=== PATIENT | male | born 1940 | race Caucasian/White ===

== ENCOUNTER → 2016-06-21 08:23 | Day surgery (SDC) | payer MEDICARE, BC ==
[~2016-06-21 08:23] MED LIST: Acetaminophen TAB* 325 MG PO PRN; Buffered Lidocaine 1% SYRIN* 3 ML/SYR SYRINGE INTRADERM ONE; Cyclopentolate 1% OPTH.SOL* 2 ML BTL ONE; Flurbiprofen 0.03% OPTH.SOL* 2.5 ML BTL ONE; Lidocaine 1% MPF* 2 ML VIAL ONE; Lidocaine 2% EPI 1:200000 MPF* 20 ML VIAL ONE; Midazolam* 1 MG/ML 5 ML VIAL (5 MG) ONE; Neomycin/Polymy/Dex OPTH.SUSP* MAXITROL 0.1% 5 ML ONE; Phenylephrine 2.5% OPTH.SOL* 2 ML BTL ONE; Povidone Iodine 5% OPTH* 30 ML BTL ONE; Proparacaine 0.5% OPHTH.SOL* 15 ML BTL ONE; acetaZOLAMIDE TAB* 250 MG ONE
[2016-06-21 11:38] VITALS: BP 134/79
--- NOTE | 2016-06-22 00:54 | OP ---
DATE OF OPERATION: 06/21/16 [facility] DATE OF : 42 SURGEON: Ethan Tello MD PREOPERATIVE DIAGNOSIS: Cataract, right eye. POSTOPERATIVE DIAGNOSIS: Cataract, right eye. OPERATIVE PROCEDURE: Phacoemulsification, right eye with IOL and iStent. DESCRIPTION OF PROCEDURE: The patient was brought to the operating room after being given 1/2% Alcaine with epinephrine drops in the preoperative area. The eye was prepped and draped in the usual sterile fashion. Sterile drape and eyelid speculum were placed. Again, topical 1/2% Alcaine with epinephrine was given. A paracentesis incision was made at the 9 o'clock position with the No.75 blade. Clear cornea incision 2.2 x 2.2-mm was created at the 12 o'clock position starting at the anterior limbus using the 2.2-mm keratome. The anterior chamber was irrigated with 0.4 mL of 1% non-preservative intracameral lidocaine and filled with DisCoVisc. A capsulorrhexis was completed using the cystotome and the Utrata forceps. Hydrodissection was performed with balanced salt solution. The lens nucleus was removed with the Phacoemulsification handpiece without incident. Cortex was removed with the irrigation-aspiration handpiece. The capsular bag was re-inflated using DisCoVisc and an [id number] implant was inserted with the shooter followed by the iStent [id number] inserted with its shooter at the 3 o'clock position into the trabecular meshwork. The irrigation-aspiration handpiece was used to remove all residual DisCoVisc. The eye was refilled with balanced salt solution and the wound checked and found to be watertight. Topical Maxitrol drops were given. [id number] #: [id number] MTDD
== END | disposition home or self-care (01) ==
LOC: OREAST 08:23
PROVIDERS: ATTEND Specialist
DX: H25.811 Combined forms of age-related cataract, right eye (principal); H40.1131 Primary open-angle glaucoma, bilateral, mild stage; E11.8 Type 2 diabetes mellitus with unspecified complications; Z79.84 Long term (current) use of oral hypoglycemic drugs; I25.10 Atherosclerotic heart disease of native coronary artery without angina pectoris; Z95.1 Presence of aortocoronary bypass graft
CPT/HCPCS: C1783; J2250; V2632

== ENCOUNTER 2018-11-21 05:30 | Inpatient (IN) | payer MEDICARE, BC ==
--- NOTE | 2018-11-17 19:52 | HP ---
PREOPERATIVE HISTORY AND PHYSICAL: DATE OF ADMISSION/SURGERY: 11/21/18 SURGEON: Yuly Scott MD * (DICTATED BY MERLE BERMUDEZ) PROCEDURE: Left total knee replacement. CHIEF COMPLAINT: Left knee pain. HISTORY OF PRESENT ILLNESS: Mr. Jean is a 77-year-old male with 2 years of increasingly painful knee pain that has become quite severe. He describes it as 9/10 and he has been trying to stay off of it most of the time to reduce his discomfort. The pain is sharp along the joint line and it is made worse if he tries to walk even half a block. He can no longer climb stairs or stand for a prolonged period of time. He has tried conservative measures without relief and is seeking surgical intervention. PAST MEDICAL HISTORY: 1. Hypertension. 2. Heart disease. 3. Type 2 diabetes. 4. Hypercholesterolemia. 5. Osteoarthritis. No DVT or pulmonary embolus. PAST SURGICAL HISTORY: 1. Retinal repair. 2. Angioplasty. 3. Hernia repair. 4. Lithotripsy for kidney stones. 5. Back surgery. 6. CABG, quadruple bypass in 2011. 7. Cholecystectomy. He denies anesthetic complications with these procedures. CURRENT MEDICATIONS: 1. Glyburide/metformin 2.5/500 mg 1 tab p.o. twice daily. 2. Nexium 40 mg 1 tab p.o. daily. 3. Hydrochlorothiazide 12.5 mg 1 tab p.o. daily. 4. Ramipril 10 mg 1 tab p.o. daily. 5. Avodart 0.5 mg 1 tab p.o. daily. 6. Nitrostat 0.4 mg 1 tab sublingual q.5 minutes up to 3 doses as needed for chest pain. 7. Aspirin 81 mg 1 tab p.o. daily. 8. Garlic 1000 mg 1 tab p.o. daily. 9. Multivitamin 1 capsule p.o. daily. 10. Klor-Con 20 mEq 1 tab p.o. daily. 11. Pravastatin sodium 80 mg 1 tab p.o. daily at bedtime. 12. Norvasc 10 mg 1 tab p.o. daily. 13. Fluticasone propionate 50 mcg/act 2 sprays each nostril daily as needed. 14. Metoprolol succinate ER 100 mg 1 tab p.o. twice daily. ALLERGIES: PENICILLIN causes GI upset, CHOCOLATE, LIPITOR, and CRESTOR. FAMILY HISTORY: Positive for cancer. No diabetes or heart disease. SOCIAL HISTORY: He lives with his spouse and is retired. He denies tobacco, alcohol, or recreational drug use. He is minimally active even pain. REVIEW OF SYSTEMS: A 14 systems were reviewed with the patient and are positive for left knee pain and swelling, seasonal allergies, and hay fever. Otherwise, all systems are negative. PHYSICAL EXAMINATION GENERAL: He is a well-developed, well-nourished male, seated on exam table, in no acute distress with appropriate affect. VITAL SIGNS: Height 59.5 inches, weight 202 pounds, pulse 72, blood pressure 140/82, respirations 16. HEENT: Normocephalic, atraumatic. Hearing and vision are grossly intact. Extraocular movements intact. NECK: The trachea is midline and symmetrical. LUNGS: Clear to auscultation. No wheezes, rales, or rhonchi appreciated. CARDIO: Regular rate and rhythm. Normal S1, S2. No murmurs, rubs, or gallops noted. ABDOMEN: Nondistended. Bowel sounds present. GENITOURINARY: Deferred. MUSCULOSKELETAL: Of the left lower extremity, the skin is pink, dry, and intact without abrasions or open wounds. There is a moderate effusion at the knee with tenderness along the medial and lateral joint line. There is a varus deformity. He extends the knee to 15 degrees, flexes to 110 with pain. No varus or valgus instability. 5/5 strength against resistance in 4 planes in the ankle with intact sensation. 2+ dorsalis pedis pulse. IMAGING: Multiple views of the left knee performed previously shows severe end - stage osteoarthritis with medial and patellofemoral [id number] arthritis. There is tricompartmental joint space narrowing, osteophyte formation and subchondral sclerosis. ASSESSMENT: Left knee severe end-stage osteoarthritis. PLAN: Left total knee replacement with Dr. Scott. The patient's questions were answered and he would like to proceed. Dr. Scott reviewed the risks and benefits of the surgery at today's visit. The patient will follow up postoperatively. MERLE BERMUDEZ [id number]/[facility] #: [id number] FIDENCIO
[~2018-11-21 05:30] MED LIST changes: -Acetaminophen TAB* 325 MG PO PRN; +Buffered Lidocaine 1% SYRIN* 1 ML/SYRINGE INTRADERM ONE; -Buffered Lidocaine 1% SYRIN* 3 ML/SYR SYRINGE INTRADERM ONE; -Cyclopentolate 1% OPTH.SOL* 2 ML BTL ONE; -Flurbiprofen 0.03% OPTH.SOL* 2.5 ML BTL ONE; -Lidocaine 1% MPF* 2 ML VIAL ONE; -Lidocaine 2% EPI 1:200000 MPF* 20 ML VIAL ONE; -Midazolam* 1 MG/ML 5 ML VIAL (5 MG) ONE; -Neomycin/Polymy/Dex OPTH.SUSP* MAXITROL 0.1% 5 ML ONE; -Phenylephrine 2.5% OPTH.SOL* 2 ML BTL ONE; -Povidone Iodine 5% OPTH* 30 ML BTL ONE; -Proparacaine 0.5% OPHTH.SOL* 15 ML BTL ONE; +Tranexamic Acid 1,000 MG in NS 0.9% 50 ML* (outpatient use) IV SCH; -acetaZOLAMIDE TAB* 250 MG ONE
--- OUTSIDE RECORDS SUMMARY | 2018-11-21 05:34 | XMS REPORT | Continuity of Care Document ---
:1940 External Reference #:[id number] Author Name Antonio Lizarraga M.D., [facility], [facility] (transmitted by agent of provider Beth Salvador) Address [address] [place] [id number] Care Team Providers Name Role Phone Ray Shipman MD - Family Medicine Care Team Information Projects Manager [phone] Problems Active Problems Provider Date Localized, primary osteoarthritis Yuly Scott M.D. Onset: 10/09/2018 Atherosclerotic heart disease of Antonio Lizarraga M.D., [facility], Onset: 2015 [place] coronary artery without angina [facility] pectoris Chronic ischemic heart disease Antonio Lizarraga M.D., [facility], Onset: 2014 [facility] Social History Type Date Description Comments Sex Unknown ETOH Use Denies alcohol use Tobacco Use Start: Unknown End: Patient is a former quit in Unknown smoker Recreational Drug Use Denies Drug Use Smoking Status Reviewed: 11/06/18 Patient is a former quit in smoker Exercise Type/Frequency Exercises regularly exercise bike 30 min a day, seasonal gardening,lawn care, cutting wood Allergies, Adverse Reactions, Alerts Active Allergies Reaction Severity Comments Date Penicillin UPSET STOMACH Moderate 12/27/2011 Chocolate SEVERE MIGRAINE, SNYCOPE Severe 12/27/2011 Lipitor UPSET STOMACH, SEVERE LEG PAIN Severe 12/27/2011 Crestor SEVERE LEG PAIN Moderate 12/27/2011 Medications Active Medications SIG Qnty Indications Ordering Date Provider Glyburide-Metformin 1 po bid 180tabs Unknown 2.5-500mg Tablets Nexium 1 by mouth 30units Unknown 40mg Packet every day Hydrochlorothiazide 1 by mouth 90caps Unknown 12.5mg every day Capsules Ramipril 1 by mouth 90caps Unknown 10mg Capsules every day Avodart 1 by mouth 90caps Unknown 0.5mg Capsules every day Nitrostat one sl q5min 25tabs Unknown 0.4mg Tablets Sub up to 3 doses as needed Aspirin 1 by mouth Unknown 81mg Tablets every day Garlic 1 by mouth Unknown 1000mg Capsules every day Multivitamins 1 capsule 30caps Unknown Capsules daily Klor-Con daily Unknown 20Meq Pravastatin Sodium 1 tablet once Unknown 80mg Tablets daily at bedtime Norvasc 1 by mouth Unknown 10mg Tablets every day Fluticasone Propionate 2 sprays each Unknown 50mcg/Act nostril daily Suspension as needed Metoprolol Succinate ER 1 by mouth Ray Shipman, 100mg twice per day MD Tablets ER 24HR Medications Administered in Office Medication SIG Qnty Indications Ordering Provider Date Inj, Regadenoson, 0.1 MG Antonio Lizarraga M.D., 11/19/2017 Injection FACC, [facility] Technetium TC 99M Antonio Lizarraga M.D., 11/19/2017 Tetrofosmin, Per Unit Dose FACC, [facility] Up To 40 Millicuries Injection Inj, Regadenoson, 0.1 MG Antonio Lizarraga M.D., 12/18/2011 Injection FACC, [facility] Technetium TC 99M Antonio Lizarraga M.D., 12/18/2011 Tetrofosmin, Per Unit Dose FACC, [facility] Up To 40 Millicuries Injection Immunizations Description No Information Available Vital Signs Date Vital Result Comment 11/06/2018 11:11am Height 69.50 inches 5'9.50" Weight 202.00 lb with shoes Heart Rate 80 /min BP Systolic Sitting 130 mmHg Rue BP Diastolic Sitting 80 mmHg Rue BP Systolic Standing 132 mmHg Rue BP Diastolic Standing 84 mmHg Rue BMI (Body Mass Index) 29.4 kg/m2 Ejection Fraction 55-60% Echo 10/31/17 10/09/2018 11:37am Height 69.50 inches 5'9.50" Weight 201.00 lb Heart Rate 80 /min Respiratory Rate 18 /min Body Temperature 97.8 F Pain Level 9 BMI (Body Mass Index) 29.3 kg/m2 Results Description No Information Available Procedures Date Code Description Status 11/06/2018 32143 EKG Tracing & Interpretation Completed Medical Devices Description No Information Available Encounters Type Date Location Provider Dx Diagnosis Office Visit 10/09/2018 [facility] Yuly Scott, M25.562 Pain in left knee 10:45a [facility] M25.462 Effusion, left knee M17.12 Unilateral primary osteoarthritis, left knee Assessments Date Code Description Provider 10/09/2018 M25.562 Pain in left knee Yuly Scott M.D. 10/09/2018 M25.462 Effusion, left knee Yuly Scott M.D. 10/09/2018 M17.12 Unilateral primary osteoarthritis, left knee Yuly Scott M.D. Plan of Treatment Future Appointment(s):11/21/2018 3:45 pm - Yuly Scott M.D. at [facility]11/15/2018 9:30 am - Yuly Scott M.D. at [facility] Functional Status Description No Information Available Mental Status Description No Information Available Referrals Description No Information Available
--- OUTSIDE RECORDS SUMMARY | 2018-11-21 05:34 | XMS REPORT | Continuity of Care Document ---
:1940 External Reference #:[id number] Author Name Yuly Scott M.D. (transmitted by agent of provider Leti Hopkins) Address [address] [place] [address] [place] [address] Care Team Providers Name Role Phone Ray Shipman MD - Family Medicine Care Team Information Electron Beam Welder [phone] Problems Active Problems Provider Date Chronic ischemic heart disease Antonio Lizarraga M.D., [facility], Onset: 2014 [facility] Atherosclerotic heart disease of Antonio Lizarraga M.D., [facility], Onset: 2015 [place] coronary artery without angina [facility] pectoris Localized, primary osteoarthritis Yuly Scott M.D. Onset: 10/09/2018 Social History Type Date Description Comments Sex Unknown ETOH Use Denies alcohol use Tobacco Use Start: Unknown End: Patient is a former quit in Unknown smoker Recreational Drug Use Denies Drug Use Smoking Status Reviewed: 11/15/18 Patient is a former quit in smoker [...] Available Vital Signs Date Vital Result Comment 11/15/2018 9:49am Height 69.50 inches 5'9.50" Weight 202.00 lb Heart Rate 72 /min BP Systolic 140 mmHg BP Diastolic 82 mmHg Respiratory Rate 16 /min Body Temperature 97.0 F Pain Level 5 BMI (Body Mass Index) 29.4 kg/m2 11/06/2018 11:11am Height 69.50 inches 5'9.50" Weight 202.00 lb with shoes Heart Rate 80 /min BP Systolic Sitting 130 mmHg Rue BP Diastolic Sitting 80 mmHg Rue BP Systolic Standing 132 mmHg Rue BP Diastolic Standing 84 mmHg Rue BMI (Body Mass Index) 29.4 kg/m2 Ejection Fraction 55-60% Echo 10/31/17 Results Description No Information Available Procedures Date Code Description Status 11/06/2018 00863 EKG Tracing & Interpretation Completed Medical Devices Description No Information Available Encounters Type Date Location Provider Dx Diagnosis Office Visit 11/06/2018 [facility] Antonio Bennett Z01.810 Encounter for 11:30a Of Allegra Lizarraga M.D., preprocedural [facility], [facility] cardiovascular examination M17.12 Unilateral primary osteoarthritis, left knee I25.10 Athscl heart disease of [place] coronary artery w/o ang pctrs R94.31 Abnormal electrocardiogram [ECG] [EKG] Office Visit 10/09/2018 10:45a [facility] Yuly Scott, M25.562 Pain in left [facility] M.[facility]. knee M25.462 Effusion, left knee M17.12 Unilateral primary osteoarthritis, left knee Assessments Date Code Description Provider 11/15/2018 M17.12 Unilateral primary osteoarthritis, Yuly Scott M.D. left knee 11/06/2018 Z01.810 Encounter for preprocedural Antonio Lizarraga M.D., cardiovascular examination [facility], [facility] 11/06/2018 M17.12 Unilateral primary osteoarthritis, Antonio Lizarraga M.D., left knee FAC, [facility] 11/06/2018 I25.10 Atherosclerotic heart disease of Antonio Lizarraga M.D., [place] coronary artery without angina [facility] pectoris 11/06/2018 R94.31 Abnormal electrocardiogram [ECG] [EKG] Antonio Lizarraga M.D., FAC, [facility] 10/09/2018 M25.562 Pain in left knee Yuly Scott M.D. 10/09/2018 M25.462 Effusion, left knee Yuly Scott M.D. 10/09/2018 M17.12 Unilateral primary osteoarthritis, Yuly Scott M.D. left knee Plan of Treatment Future Appointment(s):2018 2:00 pm - Yuly Scott M.D. at [facility]11/21/2018 3:45 pm - JHON Washburn at [facility].11/21/2018 3:45 pm - Enrique Leon PA-C at [facility].11/21/2018 3:45 pm - Yuly Scott M.D. [facility]/15/2018 - Yuly Scott M.D.M17.12 Unilateral primary osteoarthritis, left kneeFollow up:Follow up: 10-14 days postop Functional Status Description No Information Available Mental Status Description No Information Available Referrals Description No Information Available
[2018-11-21] MEDS ORDERED: Clindamycin 900 MG/D5W BAG(*) 900 MG/50 ML BAG IVPB ONE (05:58)
[2018-11-21] MEDS ORDERED: Lactated Ringers 1000 ML Bag* 1,000 ML IV SCH (06:00)
[2018-11-21] MEDS ORDERED: Bupivacaine 0.25% SDV* 30 ML ONE (06:36)
[2018-11-21] MEDS ORDERED: ROPIVACAINE 5 MG/ML 30 ML BTL (0.5%) ONE (06:59)
[2018-11-21] MEDS ORDERED: Midazolam* 1 MG/ML 5 ML VIAL (5 MG) ONE (07:17)
[2018-11-21] MEDS ORDERED: fentaNYL* 50 MCG/ML 2 ML VIAL (100 MCG VIAL) ONE (07:41)
[2018-11-21] MEDS ORDERED: Midazolam* 1 MG/ML 2 ML VIAL (2 MG) ONE (08:27)
[2018-11-21] MEDS ORDERED: Acetaminophen IV 1GM/100ML * 1,000 MG/100 ML VIAL IVPB ONE (08:32)
[2018-11-21] MEDS ORDERED: oxyCODONE TAB* 5 MG TAB PO PRN (08:32)
[2018-11-21] MEDS ORDERED: Naloxone* 0.4 MG/ML 1 ML VIAL IV PRN (08:32)
[2018-11-21] MEDS ORDERED: Ondansetron INJ* 2 MG/ML VIAL IV PRN ×2 (08:32→10:02)
[2018-11-21] MEDS ORDERED: DiMENhydriNATE IV* 50 MG/ML VIAL IV PUSH PRN (08:32)
[2018-11-21] MEDS ORDERED: HYDROmorphone INJ1* 1 MG/ML SYRINGE IV PRN (08:32)
[2018-11-21] MEDS ORDERED: fentaNYL* 50 MCG/ML 2 ML VIAL (100 MCG VIAL) IV PRN (08:32)
[2018-11-21] MEDS ORDERED: Propofol* 10 MG/ML 20 ML BTL ONE (08:58)
[2018-11-21] MEDS ORDERED: Cyclobenzaprine TAB* 10 MG PO PRN (10:02)
[2018-11-21] MEDS ORDERED: oxyCODONE/Acetamin 5/325 MG* TAB PO PRN (10:02)
[2018-11-21] MEDS ORDERED: traMADol TAB* 50 MG PO PRN (10:02)
[2018-11-21] MEDS ORDERED: Magnesium Hydroxide LIQ* 30 ML UDC PO PRN (10:02)
[2018-11-21] MEDS ORDERED: Morphine INJ* 10 MG/ML 1 ML CARPUJECT IV PRN (10:02)
[2018-11-21] MEDS ORDERED: diPHENhydraMINE IV* 50 MG/ML 1 ml VIAL (BENADRYL) IV PRN (10:02)
[2018-11-21] MEDS ORDERED: Temazepam CAP* 15 MG PO PRN (10:02)
[2018-11-21] MEDS ORDERED: Ondansetron ODT TAB* 4 MG PO PRN (10:02)
[2018-11-21] MEDS ORDERED: Acetaminophen IV 1GM/100ML * 100 ML ONE (10:02)
[2018-11-21] MEDS ORDERED: diPHENhydraMINE PO* 25 MG PO PRN (10:02)
[2018-11-21] MEDS ORDERED: Polyethylene Glycol 3350* 17 GM PACKET PO PRN (10:02)
[2018-11-21] MEDS ORDERED: Nitroglycerin TAB 0.4 MG* 0.4 MG TAB SL PRN (10:13)
[2018-11-21] MEDS: Lactated Ringers 1000 ML Bag* 1,000 ML IV SCH ×2 (11:15→20:51)
[2018-11-21] MEDS: oxyCODONE TAB* 5 MG TAB PO PRN ×2 (12:02→16:52)
[2018-11-21] MEDS ORDERED: Dextrose 50% VIAL 50 ml IV PUSH PRN (12:57)
[2018-11-21] MEDS ORDERED: metFORMIN* 500 MG TAB PO SCH (14:00)
[2018-11-21] MEDS ORDERED: glyBURIDE TAB* 2.5 MG PO SCH (14:00)
--- NOTE | 2018-11-21 14:36 | PN ---
Progress Note - Progress Note Date of Service: 11/21/18 SOAP: Subjective: [The pt was seen this morning sitting in the chair. He states that he is doing well. He has been up with PT today. He states that pain is well controlled. ] Objective: [LLE: dressing is c/d/i. NVI. +df/pf ] Vital Signs Temp 97.1 F 11/21/18 11:57 Pulse 58 11/21/18 11:57 Resp 14 11/21/18 13:35 BP 128/59 11/21/18 11:57 Pulse Ox 100 11/21/18 11:10 Intake & Output 11/20/18 11/21/18 11/21/18 18:59 06:59 18:59 Intake Total 2250 Output Total 1450 Balance 800 Weight 200 lb Intake: IV Fluids 2050 CLINDAMYCIN 900MG 50 LR 2000 Oral 200 Output: Rushing 1150 Estimated Blood Loss 300 Assessment: [POD 0 LTKA] Plan: [Continue with post op abx Continue with pain medication Continue with PT. ]
[2018-11-21] MEDS: oxyCODONE/Acetamin 5/325 MG* TAB PO PRN ×2 (15:53→21:15)
[2018-11-21] MEDS: Clindamycin 600 MG IVPREMIX(* 600 MG/50 ML SDV IV SCH ×2 (15:53→23:33)
[2018-11-21] MEDS ORDERED: Insulin LISPRO* 1 UNITS UNIT SUBCUT SCH (16:30)
[2018-11-21] MEDS: Morphine INJ* 2 MG/ML 1 ML SYRINGE (TWO MG - NEW SYRINGE VERSION) IV PRN (16:50)
--- NOTE | 2018-11-21 17:54 | OP ---
Operative Report - Blank - Operative Report Date of Operation: 11/21/18 Note: JULIANO BROWN 1940 Date of Surgery: 11/21/18 Yuly Scott MD Chlorobutadiene Scrubber Operator: Darryn BLOOM did help throughout the procedure with preparation of the knee, wound retraction, manipulation of the knee, and wound closure. Anesthesiologist: Jeannette Willoughby MD Anesthesia Type: Spinal Preoperative Diagnosis: Left severe degenerative osteoarthritis of the knee Postoperative Diagnosis: As above Procedure Performed: Left Total Knee Arthroplasty Tourniquet time: 44 minutes Complications: None Specimen: Bone and cartilage from the left knee joint sent to pathology. Hardware Used: Cemented Hurtado and Nephew total knee hardware was used - For the femur a size 6 left legion posterior stabilized femoral component, for the tibia a size 5 left catie II tibial baseplate, for the insert a size 9mm 5-6 posterior stabilized articular polyethylene insert, and for the patella a size 35 3-peg all poly patella. Brief History/Indication: JULIANO BROWN was known in clinic and had a history of severe left knee pain and swelling. He failed conservative treatment with anti-inflammatories, pain pills, intra-articular injections and physical therapy. He elected to undergo left total knee arthroplasty due to continued pain and decreased quality of life. Radiographs showed severe end stage osteoarthritis of the knee with bone on bone contact. Informed consent was obtained from the patient. He understood the risks of surgery included but were not limited to: bleeding, infection, damage to nearby structures, intraoperative fracture, nerve palsy, failure of the hardware, early loosening, knee stiffness or loss of motion, anesthesia complications, stroke, heart attack , blood clot and . He wished to proceed. Intra-Operative Findings: Intraoperatively the patient was noted to have severe loss of cartilage in all 3 compartments of the knee. Description of the Procedure: JULIANO BROWN was identified in the preanesthesia unit. His left knee was marked as the correct operative side. Informed consent was signed and placed in the chart. The patient was taken to the operating room and placed under anesthesia without complication. A smith catheter was placed. A tourniquet was placed on the left thigh. The left lower extremity was prepped and draped in the usual sterile fashion. Preoperative time-out was made to correctly identify the patient, side and site. Appropriate intraoperative antibiotics were given within one hour of incision. Tourniquet was inflated. A midline incision was made and carried sharply down to the extensor mechanism. A new 10 blade was used to make a standard medial parapatellar arthrotomy. The patella was subluxed laterally. Electrocautery was used to dissect soft tissue off the superomedial tibia to the midsagittal plane. The knee was flexed up. The anterior horn of the lateral meniscus and the ACL were sharply incised. A drill was used to enter the distal femur. The intramedullary distal femoral cutting guide was pinned on the distal femur. The oscillating saw was used to make the distal femoral cut. The external rotation guide was pinned on the distal femur and the distal femur was sized to a size 6. The size 6 multi-cutting jig was pinned on the distal femur. The oscillating saw was used to make the appropriate 4 chamfer cuts. Next the PCL was completely released. The extramedullary tibial cutting guide was pinned on the proximal tibia and the oscillating saw was used to make the proximal tibial cut perpendicular to the mechanical axis of the tibia. The bone was carefully removed. The knee was brought out into full extension. The spacer block was placed and had excellent fit with the knee in full extension. The medial and lateral ligaments were well balanced. The flexion and extension gaps were well balanced. The knee was flexed up. Lamina medical imaging specialist was placed both medially and laterally. Any remaining meniscus was removed with electrocautery. Curved osteotome was used to remove any posterior osteophytes. The tibial tray and drop selin were placed and confirmed a satisfactory tibial cut. The size 6 left femoral trial was impacted onto the distal femur. This trial had excellent fit and stability. The box for the posterior stabilized implant was prepared using a box cut osteotome and a reamer. Next a tibial tray trial and 9 mm insert trial was placed. The knee was taken through a range of motion and had full extension to 130 degrees of flexion. Patellofemoral tracking was satisfactory. The patella was inverted and sized to a size 35. Three peg holes were drilled through the size 35 drill guide. The trial patella was placed and the knee was taken through a range of motion. There was satisfactory patellofemoral tracking. All trials were removed. The tibia was subluxed anteriorly and sized to a size 5. The proximal tibial was prepared with a size 5 keel punch. All bony cut surfaces were irrigated with sterile saline and dried. Final implants were cemented into place starting with the tibia, followed by the femur, and last the patella. A 9 mm insert trial was placed and the knee was brought into full extension. Tourniquet was turned down and the knee was copiously irrigated with sterile saline. Electrocautery was used to obtain meticulous hemostasis. Once the cement had fully cured, the insert trial was removed. Any excess cement was removed from around the hardware and capsule. Final insert chosen was a 9 mm posterior stabilized Catie II articular insert size 5-6. Stability of the insert was checked and noted to be stable. The extensor mechanism was closed using number 1 vicryls. The rest of the incision was closed in a layered fashion using 0 and 2-0 vicryls. The skin was closed using 3-0 nylon suture. Sterile xeroform, 4x4s and webril were used to cover the incision. Jadiel wrap and cold pack were used to cover the dressings. The patients anesthesia was reversed without difficulty. He was taken to the PACU in stable condition. Intended weight-bearing will be as tolerated.
[2018-11-21] MEDS: Acetaminophen TAB* 325 MG PO SCH (18:04)
[2018-11-21] MEDS ORDERED: Hydrochlorothiazide TAB* 25 MG PO SCH (21:00)
[2018-11-21] MEDS: Finasteride TAB* 5 MG PO SCH (21:14)
[2018-11-21] MEDS: Docusate CAP* 100 MG PO SCH (21:14)
[2018-11-21] MEDS: CMC:Pravastatin (NF) 20 MG TAB PO SCH (21:15)
[2018-11-21] MEDS: Metoprolol Succinate XL TAB* 100 MG PO SCH (21:15)
[2018-11-21] MEDS: Magnesium Hydroxide LIQ* 30 ML UDC PO SCH (21:15)
--- NOTE | 2018-11-21 21:30 | CONS ---
[facility] RE[facility]: DATE OF CONSULT: 11/21/18 PROVIDER: Fabiola Fan NP ATTENDING PHYSICIAN: Dr. Yuly Scott. CONSULTING PHYSICIAN: Dr. Briseida Morillo (dictated by Fabiola Fan NP). REASON FOR CONSULT: Co-management of chronic medical conditions. HISTORY OF PRESENT ILLNESS: Mr. Jean is a 77-year-old male with a past medical history significant for coronary artery disease, hypertension, type 2 diabetes, hyperlipidemia, and arthritis, who presented to [facility] for an elective left total knee arthroplasty with Dr. Scott. Please see dictated H and P from MERLE Talley, for complete details. In brief, the patient had ongoing pain and opted for an elective left total knee arthroplasty with Dr. Scott. In the immediate postoperative period, the patient has no complaints. PAST MEDICAL HISTORY: 1. Arthritis. 2. Hyperlipidemia. 3. History of coronary artery disease, status post quadruple bypass. 4. Hypertension. 5. Type 2 diabetes. PAST SURGICAL HISTORY: 1. Bilateral retina repair. 2. Angioplasty. 3. Hernia repair. 4. Kidney stones. 5. Quadruple bypass. 6. Cholecystectomy. 7. Back surgery. 8. Tonsillectomy. HOME MEDICATIONS: 1. Hydrochlorothiazide 12.5 mg p.o. at bedtime. 2. Amlodipine 10 mg p.o. q.a.m. 3. Pravastatin 80 mg p.o. at bedtime. 4. Potassium 20 mEq p.o. q.a.m. 5. [place]-3 1000 units p.o. at bedtime. 6. Nitro 0.4 mg sublingual q.5 minutes as needed for pain. 7. Multivitamin 1 tab p.o. daily. 8. Metoprolol 100 mg p.o. b.i.d. 9. Glyburide/metformin 2.5/500 one cap t.i.d. 10. Garlic 1000 mg at bedtime. 11. Fluticasone 2 sprays to both nares p.r.n. 12. Nexium 40 mg p.o. q.a.m. 13. CoQ10 100 mg p.o. q.a.m. 14. Avodart 0.5 mg at bedtime. 15. Aspirin 81 mg at bedtime. 16. Altace 10 mg p.o. q.a.m. ALLERGIES: To CHOCOLATE, ATORVASTATIN, PENICILLIN, ROSUVASTATIN, and seasonal allergies. FAMILY HISTORY: No reported history of coronary artery disease or diabetes. Mother with uterine cancer, at the age of 71. Father's history is unknown. SOCIAL HISTORY: The patient reports that he quit smoking in 1979. Denies any alcohol or illicit drug use. Surrogate decision maker in the event he is unable to make his own decisions is Holly Neff, his significant other. He is a full code. REVIEW OF SYSTEMS: He denies any fever, chills, unintended weight loss. He denies any chest pain or shortness of breath. He denies any cough, hemoptysis. He denies any nausea, vomiting, diarrhea or abdominal pain, gross hematuria or dysuria. He denies any focal weakness or sensory loss, dysphagia, arthralgias, myalgias, rashes, lesions, or open sores. Denies any psychosis or anxiety. PHYSICAL EXAM: General: At this time, Mr. Jean is alert and oriented, resting in his hospital bed. He is in no acute distress. Vital Signs: Blood pressure 128/59, heart rate is 58, respirations are 16, O2 saturation 97% on room air, temperature was 97.1. HEENT: Head is atraumatic, normocephalic. Eyes: EOMs are intact. Sclerae anicteric and not pale. Oral mucosa appeared to be moist. Neck is supple. Lungs are clear to auscultation bilaterally. No wheezes, rales, or rhonchi. Cardiac: S1, S2. Regular rate and rhythm. No murmurs, rubs, or gallops. Abdomen is obese, soft, nontender. Bowel sounds are present x4. Extremities: Pedal pulses are +2 bilaterally. He does have a dressing dry and intact to his left knee. There is no clubbing or cyanosis. Neurologic: He is awake, alert, oriented x3. Speech is clear. Thought process is intact. There are no gross focal deficits. Skin: He does have a dressing that is dry and intact to his left knee. DIAGNOSTIC STUDIES/LAB DATA: CBC from 11/15/18: WBCs are 7.4, RBCs 5.3, hemoglobin 16.1, hematocrit 47, platelet count 283. INR 0.98. Sodium 139, potassium 3.8, chloride 100, carbon dioxide was 31, anion gap 8, BUN 22, creatinine 0.69, glucose was 182, magnesium 2.0, calcium 9.4. ASTs were 15, ALTs were 16, alkaline phosphatase 80. Urine was within normal limits with the exception of protein 1+, urine urobilinogen was positive, urine glucose 3+, and ascorbic acid was negative. IMPRESSION AND PLAN: Mr. Jean is a 77-year-old male with a past medical history significant for hypertension, coronary artery disease, hyperlipidemia, arthritis, type 2 diabetes, who presented to [facility] for an elective left total knee arthroplasty with Dr. Scott. [facility] was asked to consult due to his chronic medical conditions. Our recommendations are as follows: 1. Status post left total knee arthroplasty. Management per Orthopedics. PT/ OT per Orthopedics. DVT prophylaxis per Orthopedics. Pain management per Orthopedics. 2. Hypertension. I would continue his metoprolol. I would hold his Altace and hydrochlorothiazide and reevaluate his blood pressure tomorrow to resume these medications. 3. Diabetes. The patient did have hypoglycemia with a blood sugar of 50. I have discontinued his Glyburide/ metformin. I will place him on Accu-Cheks a.c. and h.s. I will hold on lispro sliding scale at this time. 4. Hyperlipidemia. He can continue on his pravastatin as previously prescribed. 5. Coronary artery disease. He should continue on metoprolol and Pravachol as previously prescribed. 6. FEN: He can have a heart-healthy consistent carbohydrate diet. 7. Code status: He is a full code. 8. DVT prophylaxis: Per Orthopedics. TIME SPENT: Time spent on this consultation was 45 minutes, greater than half that time was spent at the bedside reviewing events leading thus far to his hospitalization, performing physical exam, and reviewing my plan of care. I have discussed this with my attending, Dr. Briseida Morillo; she is in agreement with my plan. FABIOLA FAN, RIA [id number]/[facility] #: [id number] FIDENCIO
[2018-11-22] MEDS: Acetaminophen TAB* 325 MG PO SCH ×3 (00:23→17:23)
[2018-11-22] MEDS: Morphine INJ* 2 MG/ML 1 ML SYRINGE (TWO MG - NEW SYRINGE VERSION) IV PRN (03:06)
[2018-11-22] MEDS: oxyCODONE TAB* 5 MG TAB PO PRN ×3 (05:46→21:06)
[2018-11-22 07:42] LABS: Hematocrit 39 % (42-52); Hemoglobin 13.5 g/dL (14.0-18.0); Mean Platelet Volume 7.7 fL (7.4-10.4); Platelet Count 220 10^3/uL (150-450)
[2018-11-22 07:59] LABS: BUN/Creatinine Ratio 21.1 (8-20); Calcium 8.8 mg/dL (8.6-10.3); EGFR African American 130.5 (>60); EGFR Non-African American 107.9 (>60); Potassium 4.4 mmol/L (3.5-5.0)
[2018-11-22] MEDS: Clindamycin 600 MG IVPREMIX(* 600 MG/50 ML SDV IV SCH (08:18)
[2018-11-22] MEDS: Magnesium Hydroxide LIQ* 30 ML UDC PO SCH ×2 (08:23→21:07)
[2018-11-22] MEDS: Metoprolol Succinate XL TAB* 100 MG PO SCH ×2 (08:24→21:06)
[2018-11-22] MEDS: Docusate CAP* 100 MG PO SCH ×2 (08:24→21:06)
[2018-11-22] MEDS: Apixaban* 2.5 MG TAB PO SCH ×2 (08:25→21:06)
[2018-11-22] MEDS: Vitamin THERAPEUTIC TAB PO SCH (08:25)
[2018-11-22] MEDS: Pantoprazole TAB * 40 MG TAB PO SCH (08:26)
[2018-11-22] MEDS: Potassium Chlor TAB* 20 MEQ TAB.ER PO SCH (08:26)
[2018-11-22] MEDS ORDERED: Ramipril CAP* 10 MG PO SCH (09:00)
[2018-11-22] MEDS ORDERED: amLODIPine TAB* 5 MG PO SCH (09:00)
--- NOTE | 2018-11-22 10:59 | PN ---
Progress Note - Progress Note Date of Service: 11/22/18 SOAP: Subjective: Pt is doing well. He had an episode of dizziness this am upon standing that has since resolved. He was able to ambulate with PT without dizziness. Doing well otherwise. Pain is controlled. Denies F/C, CP/SOB or calf pain Objective: PE- 77 y/o WDWN M NAD LLE- dressing c/d/i, calf soft NT, +DF/PF ankle, +2 DP pulse, SILT distally Vital Signs Temp Pulse Resp BP Pulse Ox 98 F 70 18 150/63 94 11/22/18 09:57 11/22/18 09:57 11/22/18 08:17 11/22/18 09:57 11/22/18 09:57 Laboratory Results - last 24 hr 11/21/18 11/21/18 11/21/18 11:51 12:12 16:57 Hgb Hct Plt Count MPV Sodium Potassium Chloride Carbon Dioxide Anion Gap BUN Creatinine Est GFR ( Amer) Est GFR (Non-Af Amer) BUN/Creatinine Ratio Glucose POC Glucose (mg/dL) 50 L 123 H 43 L Calcium 11/21/18 11/21/18 11/22/18 17:16 20:46 00:18 Hgb Hct Plt Count MPV Sodium Potassium Chloride Carbon Dioxide Anion Gap BUN Creatinine Est GFR ( Amer) Est GFR (Non-Af Amer) BUN/Creatinine Ratio Glucose POC Glucose (mg/dL) 87 199 H 182 H Calcium 11/22/18 11/22/18 11/22/18 04:39 07:00 07:00 Hgb 13.5 L Hct 39 L Plt Count 220 MPV 7.7 Sodium 140 Potassium 4.4 Chloride 102 Carbon Dioxide 33 H Anion Gap 5 BUN 15 Creatinine 0.71 Est GFR ( Amer) 130.5 Est GFR (Non-Af Amer) 107.9 BUN/Creatinine Ratio 21.1 H Glucose 181 H POC Glucose (mg/dL) 208 H Calcium 8.8 11/22/18 09:08 Hgb Hct Plt Count MPV Sodium Potassium Chloride Carbon Dioxide Anion Gap BUN Creatinine Est GFR ( Amer) Est GFR (Non-Af Amer) BUN/Creatinine Ratio Glucose POC Glucose (mg/dL) 203 H Calcium Assessment: POD 1 S/P L total knee arthroplasty Plan: WBAT-PT/OT Eliquis for DVT prophylaxis Cont pain mgmt with percocet Dizziness has resolved- cont to monitor Likely DC to home with outpt PT tomorrow 11/23
--- NOTE | 2018-11-22 11:01 | PN ---
Subjective Date of Service: 11/22/18 Interval History: Mr. Jean is a 77 yo male, seen today in consultation for co-management of chronic medical conditions following an elective left total knee arthroplasty. He is seen in his room, sitting up in a chair. His is accompanying him. He reports good pain control with medications, states he has "soreness" but not pain. Reports an episode of dizziness this morning when working with therapy; he felt better once he laid back down. Had low BG yesterday, states "that's better" and denies any shakiness or weakness. Has been eating meals, tolerating food. Denies fever/chills, CP, SOB, abd pain, n/v. Family History: Unchanged from Admission Social History: Unchanged from Admission Past Medical History: Unchanged from Admission Objective Active Medications: Acetaminophen (Tylenol Tab*) 975 mg PO Q8H [facility] Last Admin: 11/22/18 08:25 Dose: 650 mg Apixaban (Eliquis*) 2.5 mg PO BID [facility] Last Admin: 11/22/18 08:25 Dose: 2.5 mg Bisacodyl (Dulcolax Supp*) 10 mg IA DAILY PRN PRN Reason: CONSTIPATION Cyclobenzaprine HCl (Flexeril Tab*) 10 mg PO Q6H PRN PRN Reason: SPASMS Last Admin: 11/21/18 12:03 Dose: 10 mg Dextrose (Dextrose 50% Vial 50 Ml*) 25 ml IV PUSH .FOR FS < 60 - SS PRN PRN Reason: FS < 60 Diphenhydramine HCl (Benadryl Iv*) 25 mg IV Q6H PRN PRN Reason: PRURITIS Diphenhydramine HCl (Benadryl Po*) 25 mg PO Q6H PRN PRN Reason: PRURITIS Docusate Sodium (Colace Cap*) 100 mg PO BID [facility] Last Admin: 11/22/18 08:24 Dose: 100 mg Finasteride (Proscar Tab*) 5 mg PO BEDTIME [facility] Last Admin: 11/21/18 21:14 Dose: 5 mg Lactated Ringer's (Lactated Ringers 1000 Ml Bag*) 1,000 mls @ 100 mls/hr IV PER RATE [facility] Last Admin: 11/21/18 20:51 Dose: 100 mls/hr Lactulose (Lactulose*) 30 ml PO BID PRN PRN Reason: CONSTIPATION Magnesium Hydroxide (Milk Of Magnesia Liq*) 30 ml PO BID [facility] Last Admin: 11/22/18 08:23 Dose: 30 ml Magnesium Hydroxide (Milk Of Magnesia Liq*) 30 ml PO Q6H PRN PRN Reason: CONSTIPATION Metoprolol Succinate (Toprol Xl Tab*) 100 mg PO BID [facility] Last Admin: 11/22/18 08:24 Dose: 100 mg Morphine Sulfate (Morphine Inj (Syringe))*) 2 mg IV Q4H PRN PRN Reason: Pain - Unrelieved Last Admin: 11/22/18 03:06 Dose: 2 mg Multivitamins (Theragran Tab*) 1 tab PO DAILY [facility] Last Admin: 11/22/18 08:25 Dose: 1 tab Ondansetron HCl (Zofran Inj*) 4 mg IV Q6H PRN PRN Reason: NAUSEA Ondansetron HCl (Zofran Odt Tab*) 4 mg PO Q6H PRN PRN Reason: NAUSEA Last Admin: 11/21/18 12:02 Dose: 4 mg Oxycodone HCl (Roxycodone Tab*) 10 mg PO Q4H PRN PRN Reason: Pain - Breakthrough Last Admin: 11/22/18 05:46 Dose: 10 mg Oxycodone/Acetaminophen (Percocet 5/325 Tab*) 1 tab PO Q4H PRN PRN Reason: PAIN - MODERATE Oxycodone/Acetaminophen (Percocet 5/325 Tab*) 2 tab PO Q4H PRN PRN Reason: PAIN - SEVERE Last Admin: 11/21/18 21:15 Dose: 2 tab Pantoprazole Sodium (Protonix Tab*) 40 mg PO QAM [facility]; Protocol Last Admin: 11/22/18 08:26 Dose: 40 mg Polyethylene Glycol/Electrolytes (Miralax*) 17 gm PO DAILY PRN PRN Reason: Constipation Potassium Chloride (Klor Con Er Tab*) 20 meq PO QAM [facility] Last Admin: 11/22/18 08:26 Dose: 20 meq Pravastatin Sodium (Pravachol (Nf)) 80 mg PO BEDTIME [facility]; Protocol Last Admin: 11/21/18 21:15 Dose: 80 mg Temazepam (Restoril Cap*) 15 mg PO BEDTIME PRN PRN Reason: INSOMNIA Tramadol HCl (Ultram*) 50 mg PO Q6HR PRN PRN Reason: PAIN - MODERATE Last Admin: 11/21/18 23:32 Dose: 50 mg Vital Signs - 8 hr 11/22/18 11/22/18 11/22/18 03:06 03:19 04:37 Temperature 98.9 F Pulse Rate 72 Respiratory 16 17 16 Rate Blood Pressure 137/52 (mmHg) O2 Sat by Pulse 94 Oximetry 11/22/18 11/22/18 11/22/18 05:46 07:41 08:00 Temperature 99.4 F Pulse Rate 73 Respiratory 16 16 18 Rate Blood Pressure 150/67 (mmHg) O2 Sat by Pulse 93 94 Oximetry 11/22/18 11/22/18 08:17 09:57 Temperature 98 F Pulse Rate 70 Respiratory 18 Rate Blood Pressure 150/63 (mmHg) O2 Sat by Pulse 94 Oximetry Oxygen Devices in Use Now: None Appearance: 77 yo male, OOB to chair, pleasant, NAD Eyes: No Scleral Icterus, PERRLA Ears/Nose/Mouth/Throat: Clear Oropharnyx, Mucous Membranes Moist Neck: NL Appearance and Movements; NL JVP Respiratory: Symmetrical Chest Expansion and Respiratory Effort, Clear to Auscultation Cardiovascular: NL Sounds; No Murmurs; No JVD, RRR, No Edema Abdominal: NL Sounds; No Tenderness; No Distention Extremities: No Clubbing, Cyanosis, - - left knee with c/d/i dressing, distal pulses 2+ Neurological: Alert and Oriented x 3, NL Muscle Strength and Tone Lines/Tubes/Other Access: Clean, Dry and Intact Peripheral IV Result Diagrams: 11/22/18 07:00 11/22/18 07:00 Assess/Plan/Problems-Billing Assessment: Mr. Jean is a 77 yo male with a PMH significant for HTN, CAD, HLD, OA, and DM2 who was admitted on 11/21/18 for an elective left total knee arthroplasty. - Patient Problems (1) Status post total left knee replacement Code(s): Z96.652 - PRESENCE OF LEFT ARTIFICIAL KNEE JOINT Comment: POD #1, management per ortho Continue pain management PT/OT (2) Type 2 diabetes mellitus Status: Chronic Comment: With hypoglycemia yesterday, now stabilized Holding home glyburide/metformin, resume on discharge Continue Lispro SSI, FSBG ACHS while inpatient (3) HTN (hypertension) Code(s): I10 - ESSENTIAL (PRIMARY) HYPERTENSION Comment: BP trending up today He is taking home metoprolol Resume home amlodipine and ramipril Continue to hold HCTZ, likely OK to resume on discharge unless concern for hypotension. (4) CAD (coronary artery disease) Code(s): I25.10 - ATHSCL HEART DISEASE OF [place] CORONARY ARTERY W/O ANG PCTRS Comment: Stable Continue home metoprolol and pravastatin (5) HLD (hyperlipidemia) Code(s): E78.5 - HYPERLIPIDEMIA, UNSPECIFIED Comment: Continue home pravastatin. (6) DVT prophylaxis Code(s): Z29.9 - ENCOUNTER FOR PROPHYLACTIC MEASURES, UNSPECIFIED Comment: Per ortho on Fabien (7) Full code status Code(s): Z78.9 - OTHER SPECIFIED HEALTH STATUS Status and Disposition: Per ortho. Attending: Sheldon Perdue
[2018-11-22] MEDS: Insulin LISPRO* 1 UNITS UNIT SUBCUT SCH ×2 (13:03→17:23)
[2018-11-22] MEDS: amLODIPine TAB* 5 MG PO SCH (13:04)
[2018-11-22] MEDS: oxyCODONE/Acetamin 5/325 MG* TAB PO PRN ×2 (13:05→23:53)
[2018-11-22] MEDS: Finasteride TAB* 5 MG PO SCH (21:06)
[2018-11-22] MEDS: CMC:Pravastatin (NF) 20 MG TAB PO SCH (21:07)
[2018-11-23] MEDS: Acetaminophen TAB* 325 MG PO SCH ×2 (03:04→09:51)
[2018-11-23] MEDS: oxyCODONE/Acetamin 5/325 MG* TAB PO PRN ×2 (04:58→11:42)
[2018-11-23 06:25] LABS: Hematocrit 36 % (42-52); Hemoglobin 12.3 g/dL (14.0-18.0); Mean Platelet Volume 7.3 fL (7.4-10.4); Platelet Count 199 10^3/uL (150-450)
[2018-11-23 07:57] VITALS: BP 142/65
[2018-11-23] MEDS: Insulin LISPRO* 1 UNITS UNIT SUBCUT SCH ×2 (08:06→12:03)
[2018-11-23] MEDS: Metoprolol Succinate XL TAB* 100 MG PO SCH (08:08)
[2018-11-23] MEDS: Magnesium Hydroxide LIQ* 30 ML UDC PO SCH (08:08)
[2018-11-23] MEDS: Potassium Chlor TAB* 20 MEQ TAB.ER PO SCH (08:08)
[2018-11-23] MEDS: Pantoprazole TAB * 40 MG TAB PO SCH (08:09)
[2018-11-23] MEDS: amLODIPine TAB* 5 MG PO SCH (08:09)
[2018-11-23] MEDS: Apixaban* 2.5 MG TAB PO SCH (08:09)
[2018-11-23] MEDS: Docusate CAP* 100 MG PO SCH (08:09)
[2018-11-23] MEDS: Vitamin THERAPEUTIC TAB PO SCH (08:09)
[2018-11-23] MEDS: oxyCODONE TAB* 5 MG TAB PO PRN (08:14)
--- NOTE | 2018-11-23 08:47 | PN ---
Progress Note - Progress Note Date of Service: 11/23/18 SOAP: Subjective: Pt seen at bedside. States pain is tolerable. No complaint otherwise. Denies CP , SOB, Dizziness, F/C Vital Signs: Temp Pulse Resp BP Pulse Ox 96.4 F 80 18 142/65 93 11/23/18 07:56 11/23/18 07:56 11/23/18 08:14 11/23/18 07:56 11/23/18 07:56 Laboratory Last Values Hgb 12.3 g/dL (14.0-18.0) L 11/23/18 06:12 Hct 36 % (42-52) L 11/23/18 06:12 Plt Count 199 10^3/uL (150-450) 11/23/18 06:12 MPV 7.3 fL (7.4-10.4) L 11/23/18 06:12 Sodium 140 mmol/L (135-145) 11/22/18 07:00 Potassium 4.4 mmol/L (3.5-5.0) 11/22/18 07:00 Chloride 102 mmol/L (101-111) 11/22/18 07:00 Carbon Dioxide 33 mmol/L (22-32) H 11/22/18 07:00 Anion Gap 5 mmol/L (2-11) 11/22/18 07:00 BUN 15 mg/dL (6-24) 11/22/18 07:00 Creatinine 0.71 mg/dL (0.67-1.17) 11/22/18 07:00 Est GFR ( Amer) 130.5 (>60) 11/22/18 07:00 Est GFR (Non-Af Amer) 107.9 (>60) 11/22/18 07:00 BUN/Creatinine Ratio 21.1 (8-20) H 11/22/18 07:00 Glucose 181 mg/dL (70-100) H 11/22/18 07:00 POC Glucose (mg/dL) 176 mg/dL (70-100) H 11/22/18 21:05 Calcium 8.8 mg/dL (8.6-10.3) 11/22/18 07:00 Objective: A&O x3, NAD Dressing changed, Incision C/D/I, Calves soft and nontender, NVI distally Assessment: 77 yo male s/p Left TKA POD #2 Plan: OOB, PT/OT WBAT Pain control DVT prophylaxis - Eliquis 2.5mg Home today
[2018-11-23] MEDS ORDERED: Ramipril CAP* 10 MG PO SCH (09:00)
[2018-11-23] MEDS ORDERED: Bisacodyl SUPP* 10 MG SUPP PR PRN (10:02)
--- NOTE | 2018-11-23 10:15 | DS ---
Orthopedic Discharge Summary - Discharge Summary Date of Admission:11/21/18 Date of Discharge: 11/23/18 Date of Surgery: 11/21/18 Attending Orthopedic Provider: Dr. Yuly Scott Pre-operative Diagnosis: Left knee Osteoarthritis Operative Procedure: Left Total Knee Arthroplasty Disposition of Patient: Home Condition of Patient: Stable History: JULIANO BROWN is a 77 year old M with years of increasingly severe left knee pain. Patient has failed conservative management and has elected to undergo a left total knee replacement Hospital Course: JULIANO was admitted to [facility] on 11/21/18. Patient underwent a Left Total Knee Arthroplasty without complication followed by a brief recovery in PACU and transfer to the Short Stay Surgical Unit in stable condition. Our hospitalist service, physical therapy and occupational therapy also participated in this patients care. Post-op day 1: patient was alert and in no acute distress. Dressing was clean, dry and intact. Operative extremity dorsiflexion and plantarflexion intact, sensation intact to light touch distally, DP2+. Post-op day two: dressing was changed, incision was clean , dry and intact. Patient was deemed to be medically and orthopedically stable for discharge. Physical therapy goals were met. Home Medications Medication Instructions Recorded Confirmed Type Altace CAP* 10 mg PO QAM 01/02/12 11/21/18 History Avodart 0.5 mg PO BEDTIME 01/02/12 11/21/18 History Fluticasone NASAL (NF) 2 spray BOTH NARES BID PRN 01/02/12 11/21/18 History Metoprolol Succinate ER 100 mg PO BID 01/02/12 11/21/18 History Coq10 Maximum Strength 100 mg PO QAM 01/03/12 11/21/18 History Garlic 1,000 mg PO BEDTIME 01/03/12 11/21/18 History Glyburid/Metformin 2.5/500(NF) 1 cap PO TID 06/03/12 11/21/18 History Pravastatin Sodium 80 mg PO BEDTIME 06/03/12 11/21/18 History amLODIPine TAB* [Norvasc 5 mg TAB*] 10 mg PO QAM 06/03/12 11/21/18 History Esomeprazole(NF) [Nexium(NF)] 40 mg PO QAM 11/15/18 11/21/18 History Multivitamins/Minerals TAB* 1 tab PO BEDTIME 11/15/18 11/21/18 History [Theragran/minerals TAB*] Nitroglycerin TAB 0.4 MG* 0.4 mg SL Q5M PRN 11/15/18 11/21/18 History Orient-3/Dha/Epa/Fish Oil [Fish Oil 1,000 mg PO BEDTIME 11/15/18 11/21/18 History 1,000 mg Softgel] Potassium Chlor TAB* [Potassium 20 meq PO QAM 11/15/18 11/21/18 History Chlor TAB 20 MEQ*] hydroCHLOROthiazide 12.5 mg PO BEDTIME 11/15/18 11/21/18 History [Hydrochlorothiazide] Apixaban* [Eliquis*] 2.5 mg PO BID tab 11/23/18 Rx Cyclobenzaprine TAB* [Flexeril 10 10 mg PO Q6H PRN tab 11/23/18 Rx MG TAB*] oxyCODONE/Acetamin 5/325 MG* 1 tab PO Q4H PRN tab 11/23/18 Rx [Percocet 5/325 TAB*] oxyCODONE/Acetamin 5/325 MG* 2 tab PO Q4H PRN tab 11/23/18 Rx [Percocet 5/325 TAB*] Discharge Instructions following Orthopedic Surgery: Activity: * Weight Bearing as tolerated * Continue physical therapy and occupational therapy exercises as shown Wound care: * OK to shower on post-op day 3, no bathing, swimming, or submerging wound. * Use gentle soap, pat dry. Cover with gauze, JESSICA wrap or tape. Call Orthopedic office for: * Increased drainage * Redness * Increased pain * Fever Go to ER with shortness of breath or chest pain. Diet: * Regular diet * Increase fluids and fiber to prevent constipation. * Continue to use stool softeners, call office if no bowel motion within 48 hours. Medications See Home Medication List in your packet for medications that you should take after discharge. DVT Prophylaxis: Eliquis Dosin.5 mg, 1 tab every 12 hours x 30 days DO NOT take aspirin or fish oil while on eliquis Pain Control: Percocet Dosin/325 mg 1-2 tabs by mouth every 4-6 hours as needed for pain. Maximum of 10 tabs per day. Please note that Percocet contains Tylenol (acetaminophen). Maximum daily dose of Tylenol is 4000 mg from all sources. Antibiotics are required prior to any dental work. FOLLOW UP: Follow up with Dr. Scott Within 10-14 days, call for appointment Please call our office with any questions or concerns ([phone])
== END 2018-11-23 12:00 | disposition home or self-care (01) | DRG 470 ==
LOC: AA 05:30 → SSU 10:02
PROVIDERS: ADMIT Orthopaedic Surgery Adult Reconstructive Orthopaedic Surgery; ATTEND Orthopaedic Surgery Adult Reconstructive Orthopaedic Surgery
PROC: 0SRD0J9 Replacement of Left Knee Joint with Synthetic Substitute, Cemented, Open Approach (ICD-10-PCS; principal; 2018-11-21 07:30)
DX: M17.12 Unilateral primary osteoarthritis, left knee (principal); E87.2 Acidosis; I10 Essential (primary) hypertension; E78.00 Pure hypercholesterolemia, unspecified; M21.162 Varus deformity, not elsewhere classified, left knee; M25.762 Osteophyte, left knee; N40.0 Benign prostatic hyperplasia without lower urinary tract symptoms; J32.9 Chronic sinusitis, unspecified; J30.2 Other seasonal allergic rhinitis; I45.10 Unspecified right bundle-branch block; I25.10 Atherosclerotic heart disease of native coronary artery without angina pectoris; I25.9 Chronic ischemic heart disease, unspecified; E11.649 Type 2 diabetes mellitus with hypoglycemia without coma; K21.9 Gastro-esophageal reflux disease without esophagitis; Z90.49 Acquired absence of other specified parts of digestive tract; Z95.1 Presence of aortocoronary bypass graft; Z88.0 Allergy status to penicillin; Z88.8 Allergy status to other drugs, medicaments and biological substances; Z91.018 Allergy to other foods; Z98.42 Cataract extraction status, left eye; Z98.41 Cataract extraction status, right eye; Z82.49 Family history of ischemic heart disease and other diseases of the circulatory system; Z84.1 Family history of disorders of kidney and ureter; Z83.49 Family history of other endocrine, nutritional and metabolic diseases; Z87.891 Personal history of nicotine dependence; Z79.84 Long term (current) use of oral hypoglycemic drugs
CPT/HCPCS: 36415; 80048; 85014; 85018; 85049; 88305; 88311; A9270-GY; C1776; G8978-GP-CJ; G8979-GP-CI; J2250; J2270; J2704; J2795; J3010; J3490

== ENCOUNTER 2021-12-28 09:42 | Inpatient (IN) ==
[2021-12-28 10:08] LABS: INR 0.97 (0.89-1.11)
[2021-12-28 10:11] LABS: ABS Basophils 0.1 10^3/ul (0-0.2); ABS Eosinophils 0.2 10^3/ul (0-0.6); ABS Lymphocytes 2.3 10^3/ul (1.0-4.8); ABS Monocytes 0.8 10^3/ul (0-0.8); ABS Neutrophils 10.1 10^3/ul (1.5-7.7); Eosinophil % 1.2 %; Hematocrit 45 % (42-52); Hemoglobin 14.6 g/dL (14.0-18.0); Lymphocyte % 16.8 %; Mean Corpuscular HGB Conc 33 g/dL (31-36); Mean Corpuscular Hemoglobin 30 pg (27-31); Mean Corpuscular Volume 91 fL (80-94); Nucleated Red Blood Cells % 0.1; Red Blood Count 4.93 10^6 /uL (4.18-5.48); Red Cell Distribution Width 13 % (10-15); White Blood Count 13.5 10^3/uL (3.5-10.8)
[2021-12-28 10:24] LABS: High Sens Troponin Baseline 115 pg/mL (<20)
[2021-12-28] MEDS ORDERED: Heparin DRIP 25,000 UNITS BAG 25,000 UNITS/500 ML BAG IV SCH (10:30)
[2021-12-28] MEDS ORDERED: NS 0.9% 1000 ml BAG 1,000 ML IV SCH (10:30)
[2021-12-28] MEDS ORDERED: Heparin 5000 UNITS/ML 1 mL VIAL IV PRN (10:34)
[2021-12-28 10:42] LABS: ALT 16 U/L (7-52); Albumin 4.6 g/dL (3.2-5.2); Albumin/Globulin Ratio 1.4 (1-3); Alkaline Phosphatase 68 U/L (35-149); Blood Urea Nitrogen 30 mg/dL (6-24); CO2 Carbon Dioxide 23 mmol/L (22-32); Calcium 9.6 mg/dL (8.6-10.3); Chloride 101 mmol/L (101-111); Globulin 3.4 g/dL (2-4); Glucose 215 mg/dL (70-100); Sodium 136 mmol/L (135-145)
[2021-12-28 10:52] LABS: Anion Gap 12 mmol/L (2-11)
[2021-12-28 10:53] LABS: Platelet Count 323 10^3/uL (150-450)
[2021-12-28 11:15] LABS: Potassium Redraw 4.4 mmol/L (3.5-5.0)
[2021-12-28 11:22] LABS: High Sensitivity Troponin 1 Hr 524 pg/mL (<20)
[2021-12-28] MEDS ORDERED: fentaNYL 100 mcg/2 ml 50 MCG/ML VIAL ONE (12:02)
[2021-12-28] MEDS ORDERED: Heparin 1,000 UNIT/ML 10 ml (10,000 UNITS) CATHLAB/DIALYSIS ONE ×2 (12:02→12:09)
[2021-12-28] MEDS ORDERED: Midazolam 5 mg/5 ml VIAL 1 mg/ml 5 ml VIAL (5 mg) ONE (12:02)
[2021-12-28] MEDS ORDERED: Heparin 2 UNITS/ML 1000 mls 2,000 ML IV ONE (12:03)
[2021-12-28] MEDS ORDERED: nitroGLYCERIN DRIP 25,000 MCG/250 ML BTL ONE (12:03)
[2021-12-28] MEDS ORDERED: niCARdipine 0.1MG/ML IVPREMIX 20 MG/200 ML BAG IV ONE (12:03)
[2021-12-28] MEDS ORDERED: Lidocaine 1% MPF 5 ML VIAL ONE (12:03)
[2021-12-28] MEDS ORDERED: Iohexol 350 (CONTRAST) 100 ML PAK IV ONE (12:03)
[2021-12-28] MEDS ORDERED: Heparin 2 UNITS/ML 1000 mls 1,000 ML IV ONE (13:01)
[2021-12-28 13:23] LABS: Activated Partial Thrombo Time 24.7 seconds (26.0-38.0)
[2021-12-28] MEDS ORDERED: Ondansetron 4 mg VIAL 2 MG/ML 2 ml VIAL IV PRN (14:12)
[2021-12-28] MEDS ORDERED: Pravastatin 20 mg TAB (NF) PO SCH (21:00)
[2021-12-29 04:50] LABS: ABS Eosinophils 0.1 10^3/ul (0-0.6); ABS Lymphocytes 1.4 10^3/ul (1.0-4.8); ABS Monocytes 1.1 10^3/ul (0-0.8); ABS Neutrophils 7.8 10^3/ul (1.5-7.7); Eosinophil % 1.1 %; Hematocrit 40 % (42-52); Hemoglobin 13.2 g/dL (14.0-18.0); Lymphocyte % 13.7 %; Mean Corpuscular HGB Conc 33 g/dL (31-36); Mean Corpuscular Hemoglobin 30 pg (27-31); Mean Corpuscular Volume 89 fL (80-94); Mean Platelet Volume 7.9 fL (7.4-10.4); Nucleated Red Blood Cells % 0.1; Platelet Count 274 10^3/uL (150-450); Red Blood Count 4.43 10^6 /uL (4.18-5.48); Red Cell Distribution Width 13 % (10-15); White Blood Count 10.5 10^3/uL (3.5-10.8)
[2021-12-29 05:21] LABS: Albumin/Globulin Ratio 1.5 (1-3); Calcium 8.9 mg/dL (8.6-10.3); Globulin 2.6 g/dL (2-4); HDL Cholesterol 36.4 mg/dL; Magnesium 1.2 mg/dL (1.9-2.7); Phosphorus 2.7 mg/dL (2.5-5.0); Potassium 3.5 mmol/L (3.5-5.0); Total Bilirubin 0.8 mg/dL (0.2-1.0); Total Protein 6.6 g/dL (6.4-8.9); eGFR CKD-EPI 91.6 (>60)
[2021-12-29] MEDS ORDERED: Magnesium Sulfate IV 3 GM in NS 0.9% 100 ml BAG 100 ML IVPB ONE (08:35)
[2021-12-29] MEDS ORDERED: Potassium Chlor 20 meq TAB.ER PO ONE ×2 (08:35)
[2021-12-29 13:49] VITALS: BP 126/85
== END 2021-12-29 13:35 | disposition home or self-care (01) | DRG 246 ==
LOC: ED 09:42 → ICU 11:35 → CHICATH 11:35 → ICU 14:48
PROVIDERS: ADMIT Surgery Surgical Critical Care; ATTEND Surgery Surgical Critical Care